=== PATIENT | female | born 2005 | race Two or more races ===

== ENCOUNTER 2024-07-16 12:10 | Emergency (ER) | payer MEDICAID, OTHER ==
[~2024-07-16] VITALS: Ht 162.6 cm; Wt 77.2 kg
--- NOTE | 2024-07-16 12:18 | ED.PDOC ---
History of Present Illness HPI Comments 18F BIBA w/ prior Hx of being x 2 weeks w/ a which all may be associated to the c/c of a syncope episode which happened 1 hr ago. EMS report the pt being dizzy while being having heavy vaginal bleeding which started yesterday and having to go through 5 period pads a day, not waiting for the pads to fully absorb the blood to prevent any infx. On scene EMS were unable to see a BP but eventually got a BP of 107/66 w/ a BS of 88. Pt reports that she gets more dizzy when she tries to adjust her pelvic binder. Pt states that she gave at speed and that she is . Denies chills, fever, N/V/D, SOB, CP or other associated symptom's, modifiers, or recent injuries or sick contact at this time. Time Seen by MD: 12:15 Reviewed Notes: Nurses Notes, Fire And Explosion Investigator Notes, Medications, Allergies Information Source: Patient, Emergency Med Personnel Mode of Arrival: EMS Severity: Moderate Timing: Minutes Duration: Since onset, Minutes Prehospital treatment: None Past Medical History PAST MEDICAL HISTORY: Denies Surgical History: Surgical History (Other): SYSTEM ENGINEER History: No Pertinent SYSTEM ENGINEER History Family History Family History: Reviewed,noncontributory to illness, Unknown Social History Smoker: Non-Smoker Alcohol: Denies ETOH Use Drugs: Denies Drug Use Lives In: Home Constitutional: denies: chills, diaphoresis, fatigue, fever, malaise, sweats, weakness, others EENTM: denies: blurred vision, double vision, ear bleeding, ear discharge, ear drainage, ear pain, ear ringing, eye pain, eye redness, hearing loss, mouth pain, mouth swelling, nasal discharge, nose bleeding, nose congestion, nose pain, photophobia, tearing, throat pain, throat swelling, voice changes, others Respiratory: denies: cough, hemoptysis, orthopnea, SOB at rest, shortness of breath, SOB with excertion, stridor, wheezing, others Cardiovascular: reports: syncope; denies: chest pain, dizzy spells, diaphoresis, Dyspnea on exertion, edema, irregular heart beat, left arm pain, lightheadedness, palpitations, PND, others Gastrointestinal: denies: abdomen distended, abdominal pain, blood streaked bowels, constipated, diarrhea, dysphagia, difficulty swallowing, hematemesis, melena, nausea, poor appetite, poor fluid intake, rectal bleeding, rectal pain, vomiting, others Genitourinary: reports: abnormal vagina bleeding; denies: burning, dyspareunia, dysuria, flank pain, frequency, hematuria, incontinence, pain, , vagina discharge, urgency, others Neurological: reports: dizziness; denies: fainting, headache, left sided numbness, left sided weakness, numbness, paresthesia, pre-existing deficit, right sided numbness, right sided weakness, seizure, speech problems, tingling, tremors, weakness, others Musculoskeletal: denies: back pain, gout, joint pain, joint swelling, muscle pain, muscle stiffness, neck pain, others Integumetry: denies: bruises, change in color, change in hair/nails, dryness, laceration, lesions, lumps, rash, wounds, others Allergic/Immunocompromised: denies: Difficulty Healing, Frequent Infections, Hives, Itching, others Hematologic/Lymphatic: denies: anemia, blood clots, easy bleeding, easy bruising, swollen glands, others Endocrine: denies: excessive hunger, excessive sweating, excessive thirst, excessive urination, flushing, intolerance to cold, intolerance to heat, unexplained weight gain, unexplained weight loss, others Psychiatric: denies: anxiety, bipolar disorder, depression, hopeless, panic disorder, schizophrenia, sleepless, suicidal, others All Other Systems: Reviewed and Negative Physical Exam General Appearance: No Apparent Distress HEENT: Normal ENT Inspection, Pharynx Normal, TMs Normal Neck: Full Range of Motion, Non-Tender, Normal, Normal Inspection Respiratory: Chest Non-Tender, Lungs Clear, No Accessory Muscle Use, No Respiratory Distress, Normal Breath Sounds Cardiovascular: No Edema, No JVD, No Murmur, No Gallop, Normal Peripheral Pulses, Regular Rate/Rhythm Breast Exam: Deferred Gastrointestinal: No Organomegaly, Non Tender, No Pulsatile Mass, Normal Bowel Sounds, Soft Genitalia: Deferred Pelvic: Deferred Rectal: Deferred Extremities: No calf tenderness, Normal capillary refill, Normal inspection, Normal range of motion, Non-tender, No pedal edema Musculoskeletal : Apperance: Normal Neurologic: Alert, 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 Was a procedure done?: No Differential Dx Considerations may include: Near-syncope, syncope, generalized weakness, UTI X-Ray, Labs, Meds, VS Vital Signs Date Time Temp Pulse Resp B/P (MAP) Pulse Ox O2 Delivery O2 Flow Rate FiO2 07/16/24 12:55 74 19 97 Room Air* 0 21 07/16/24 12:35 98.0 74 19 147/75 (99) 97 98.0 07/16/24 12:21 98.7 76 20 109/72 (84) 96 Lab Test 07/16/24 13:05 07/16/24 12:40 Range/Units White Blood Count 11.4 H 4.4-10.8 10^3/uL Red Blood Count 4.49 4.0-5.20 10^6/uL Hemoglobin 12.5 12.2-16.2 g/dL Hematocrit 38.1 36.0-46.0 % Mean Corpuscular Volume 84.8 80.0-100.0 fL Mean Corpuscular Hemoglobin 27.9 L 28.0-32.0 pg Mean Corpuscular Hemoglobin Concent 32.9 32.0-36.0 g/dL Red Cell Distribution Width 18.3 H 11.8-14.3 % Platelet Count 458 H 140-450 10^3/uL Mean Platelet Volume 6.7 L 6.9-10.8 fL Neutrophils (%) (Auto) 75.3 37.0-80.0 % Lymphocytes (%) (Auto) 19.4 10.0-50.0 % Monocytes (%) (Auto) 3.3 0.0-12.0 % Eosinophils (%) (Auto) 1.4 0.0-7.0 % Basophils (%) (Auto) 0.6 0.0-2.0 % Neutrophils # (Auto) 8.6 1.6-8.6 10 ^3/uL Lymphocytes # (Auto) 2.2 0.4-5.4 10 ^3/uL Monocytes # (Auto) 0.4 0-1.3 10 ^3/uL Eosinophils # (Auto) 0.2 0-0.8 10 ^3/uL Basophils # (Auto) 0.1 0-0.2 10 ^3/uL Nucleated Red Blood Cells 0.0 % Prothrombin Time 10.5 9.3-11.8 sec Prothrombin Time INR 0.99 0.9-1.15 Activated Partial Thromboplast Time 26.9 24.5-34.5 SEC POC Glucose 82 70-106 mg/dl Pelvic ultrasound shows: IMPRESSION: 1. Uterus appears mildly prominent in size with small amount of fluid in the uterine cavity. 2. Nonvisualization of the ovaries. The CBC shows an elevated white blood cell count of 11.4 The pelvic ultrasound is basically within normal limits At this time, the patient was now asymptomatic The patient was being discharged and will follow up with the primary care doctor The patient will return to the emergency department's condition worsens The patient was contacted her doctor at [facility] and they have told the patient to follow up with them. Images Reviewed?: Images reviewed and evaluated by me Time of 1ST Reevaluation: 12:45 Reevaluation 1ST: Unchanged Patient Education/Counseling: Diagnosis, Treatment, Prognosis, Need For Follow Up Family Education/Counseling: No Family Present Departure 1 Departure Time of Disposition: 15:35 Impression: Primary Impression: Status post Additional Impression: Near syncope Disposition: 01 HOME / SELF CARE / HOMELESS Condition: Fair Discharged With: Self Critical Care Note Critical Care Time?: No Stability Stability form required: No Heart Score Heart Score: Heart Score Response (Comments) Value History N/A 0 EKG N/A 0 Age N/A 0 Risk Factors N/A 0 Troponin N/A 0 Total 0 I personally scribed for VINI TRINIDAD MD ([email or web address]) on 07/16/24 at 12:18. Electronically submitted by Eric Fernandez ([email or web address]). VINI TRINIDAD MD Jul 16, 2024 12:18
[2024-07-16 12:35] VITALS: TEMP 98
[2024-07-16 12:55] VITALS: PULSE 74; RESP 19; O2SAT 97
--- NOTE | 2024-07-16 13:11 | DVH ---
TRANSABDOMINAL PELVIC ULTRASOUND HISTORY: post TECHNIQUE: Multiple tranabdominal sonographic images of the pelvis were obtained. FINDINGS: The uterus measures 12 x 8.4 x 7.9 cm. There is no discrete uterine mass or leiomyoma. The endometri al stripe measures 5 mm . There is small amount of fluid within the uterine cavity. The right and left ovaries are not seen on the current ultrasound study There is no free fluid in the cul-de-sac.. IMPRESSION: 1. Uterus appears mildly prominent in size with small amount of fluid in the uterine cavity. 2. Nonvisualization of the ovaries. HS:Y
[2024-07-16 13:53] LABS: Basophils # (auto) 0.1 10 ^3/uL (0-0.2); Basophils % (auto) 0.6 % (0.0-2.0); Eosinophils # (auto) 0.2 10 ^3/uL (0-0.8); Eosinophils % (auto) 1.4 % (0.0-7.0); Hematocrit 38.1 % (36.0-46.0); Hemoglobin 12.5 g/dL (12.2-16.2); Lymphocytes # (auto) 2.2 10 ^3/uL (0.4-5.4); Lymphocytes % (auto) 19.4 % (10.0-50.0); Mean Corpuscular Hemoglobin 27.9 pg (28.0-32.0); Mean Corpuscular Hgb Conc. 32.9 g/dL (32.0-36.0); Mean Corpuscular Volume 84.8 fL (80.0-100.0); Monocytes # (auto) 0.4 10 ^3/uL (0-1.3); Monocytes % (auto) 3.3 % (0.0-12.0); Neutrophils # (auto) 8.6 10 ^3/uL (1.6-8.6); Neutrophils % (auto) 75.3 % (37.0-80.0); Platelet Count (auto) 458 10^3/uL (140-450); Red Blood Cells 4.49 10^6/uL (4.0-5.20); Red Cell Distribution Width 18.3 % (11.8-14.3); White Blood Cell 11.4 10^3/uL (4.4-10.8)
[2024-07-16 14:05] LABS: INR 0.99 (0.9-1.15); Partial Thromboplastin Time 26.9 SEC (24.5-34.5); Prothrombin Time 10.5 sec (9.3-11.8)
[2024-07-16 15:47] VITALS: BP 124/78; PULSE 78; RESP 11; O2SAT 97
== END 2024-07-16 16:02 | disposition home or self-care (01) ==
LOC: EDBD 12:10 → ER 12:10
DX: O90.89 Other complications of the puerperium, not elsewhere classified (principal); R55 Syncope and collapse; Z98.890 Other specified postprocedural states
CPT/HCPCS: 36415; 76856; 82947; 82962; 85025; 85610; 85730; 86850; 86900; 86901